=== PATIENT | female | born 1970 | race Caucasian/White ===

== ENCOUNTER 2024-02-20 19:48 | Emergency (ER) | payer BC, SELFPAY ==
[2024-02-20 19:50] VITALS: BP 167/113; BMI 36.4
--- NOTE | 2024-02-20 22:55 | ED.MUSCINJ ---
HPI-Injury
<HANNAH Montana - Last Filed: 02/20/24 23:27>
General
Chief Complaint: Musculo-Skeletal Complaint
Source: patient
Exam Limitations: none
Time Seen by Provider: 02/20/24 22:42
Travel History
Have you had any contact with someone who has COVID-19?: No
Do you have any symptoms of coronavirus? Fever > 100 degrees, chills, cough, shortness of breath, sore throat, loss of taste or smell, muscle aches, or headache?: No
History of Present Illness-Injury
Initial Injury comments:
This is a 53 yo F presenting for R thumb injury. She states she jammed her thumb on a basketball at 6pm today and felt her proximal thumb dislocate before immediately 'popping back in place.' Since then her thumb has been increasingly swollen. She
states minor limitation of thumb flexion and attributes this to the swelling.
She denies significant pain, denies loss of sensation.
Review of Systems
<HANNAH Montana - Last Filed: 02/20/24 23:27>
Review of Systems
Allergies reviewed?: Yes
Constitutional: Reports no symptoms
Musculoskeletal: Reports joint pain and joint swelling
Musculoskeletal Injury Exam
<HANNAH Montana - Last Filed: 02/20/24 23:27>
Musculoskeletal Injury Exam
Right Proximal Thumb:
Pain with Movement?: Mild
Tender to palpation?: Mild
Soft tissue swelling?: Moderate
External deformity and angulation?: None
Joint effusion?: None
Contusion?: None
Hematoma-local bleeding into tissue?: None
Strain- Sprain- Tear (Connective tissue injury)?: Moderate
Crepitus with movement?: No
Joint instability?: No
Malalignment/deformity?: No
Range of motion: Limited (limited thumb flexion)
Distal skin color and temperature: normal-warm & good color
Capillary Refill: normal
Normal distal neurovascular exam?: Yes
Phy Exam
<HANNAH Montana - Last Filed: 02/20/24 23:27>
General Physical Exam
General Presentation: well appearing and no apparent distress
General age: appears stated age
Injury Course
<HANNAH Montana - Last Filed: 02/20/24 23:27>
Orders/Labs/Results
Orders:
Orders
02/20/24 19:55
Thumb/Finger 2 View Rt [CR Finger(s)/thumb Min 2 Vw Rt] Urgent
Comment:
Reason For Exam: injury
Indicate Which Finger:: Thumb
02/20/24 23:06
Aluminium Finger Splint Right ONCE
<Carl Rivera DO - Last Filed: 02/20/24 23:19>
Orders/Labs/Results
Orders:
Orders
02/20/24 19:55
Thumb/Finger 2 View Rt [CR Finger(s)/thumb Min 2 Vw Rt] Urgent
Comment:
Reason For Exam: injury
Indicate Which Finger:: Thumb
02/20/24 23:06
Aluminium Finger Splint Right ONCE
<HANNAH Montana - Last Filed: 02/20/24 23:27>
MDM/Problems Addressed
Differential Diagnosis Includes:
Thumb Strain
MDM/Problems Addressed:
Finger XRAY negative for fracture and dislocation, demonstrates soft tissue swelling.
Thumb splint applied.
Patient instructed to rest and ice her thumb, and use NSAIDS as needed.
Patient was advised to get evaluated again if pain at the base of the thumb continues to worsen.
<HANNAH Montana - Last Filed: 02/20/24 23:27>
*Radiology
Radiology exam reviewed: radiology read reviewed and all reviewed NAD by ED Provider
*Critical Care Note
Total Time (30-74mins, 75-104mins- exclusive of procedures): Not Applicable
ED Attending Note
<HANNAH Montana - Last Filed: 02/20/24 23:27>
-
Portions of this chart may have been created with voice recognition software.� Occasional wrong word or��sound alike� substitutions may have occurred due to the inherent limitations of voice recognition software.
<Carl Rivera DO - Last Filed: 02/20/24 23:19>
ED Attending Note
Patient seen and examined by attending physician: Yes
I performed the substantive portion of visit, reviewed & personally made and approve the management plan that is documented in note by myself or PAIGE.: Yes
ED Attending Note:
Pleasant 53-year-old female presents with right thumb pain while playing basketball. She states that she jammed it while getting a pass. She felt that it was temporarily dislocated but now feels that it is back in place. Denies any other injury.
Patient was seen in conjunction with the PA student. I have reviewed and agree with the history and treatment plan presented. On my independent physical exam, patient is awake, alert, and oriented x3. No acute distress. She does have painful
movement of the right thumb. Capillary refill. Good coloration. No obvious deformity. No scaphoid tenderness.
X-ray was reviewed by myself and deemed negative. Radiology report reviewed.
Plan is discharge. Follow-up with Ortho for continued pain.
Discharge Plan
Departure
Patient Disposition: Home (Routine Discharge)
Patient with high blood pressure during this ER visit?: Yes
Discharge Problem:
Strain of right thumb
Instructions: Using Cold for Pain, Splint Care, BLOOD PRESSURE
Referrals:
Kofi Dixon MD [Family Provider] -
Alberto Aguirre MD [Active] - As needed
Activity Restrictions/Additional Instructions:
As discussed, if you have continued pain at the base of the thumb it is very important that you follow-up with orthopedics and/or get a repeat x-ray.
It was a pleasure meeting you and taking part in your care. We hope for your continued healing and wellness.
Please read discharge instructions in their entirety. However, they are for general education and may not describe your exact diagnosis at discharge. Information on your ER visit and medical conditions were discussed with you along with appropriate
follow up information...
If indicated, please take your medications as instructed and indicated on discharge paperwork.
Please schedule a follow up appointment as directed. Call to schedule an appointment
Please return to the emergency department with ANY change in, persisting, or worsening of symptoms. If any of your symptoms do not improve, or persist, or become more severe within 6-12 hours, please return to the emergency department for further
care.
Please return to the emergency department if you develop a headache, neck pain/stiffness, fever greater than 100.4F, chest pain, shortness of breath, persistent nausea, vomiting, slurred speech, difficulty walking, numbness/tingling, weakness, signs
of infection or any other symptoms that are worrisome to you.
If you have any questions or concerns please do not hesitate to call the Hospital at or E-mail me directly at [email or web address]
Interventions
Interventions:
*Risk Screen - Suicide Last Done: 02/20/24 19:50
*General Assessment Last Done: 02/20/24 19:50
*Neglect/Abuse Screening Last Done: 02/20/24 19:50
*ED COVID-19 Vaccine History Last Done: 02/20/24 19:50
ED-Musculoskeletal Assessment Last Done: 02/20/24 23:14
Discharge Date and Time
Print Language: UKRAINIAN
== END 2024-02-21 00:02 | disposition home or self-care (01) ==
LOC: EMR 19:48
PROVIDERS: EMERGENCY PHYSICIAN Student in an Organized Health Care Education/Training Program; FAMILY PHYSICIAN Family Medicine
DX: S69.91XA Unspecified injury of right wrist, hand and finger(s), initial encounter (principal); X58.XXXA Exposure to other specified factors, initial encounter
CPT/HCPCS: 99283; 29130; 73140

== ENCOUNTER → 2024-08-12 08:48 | Outpatient (REF) | payer BC, SELFPAY | LOC: WDC 08:48 | PROVIDERS: ATTENDING PHYSICIAN Nurse Practitioner Family | DX: Z12.39 Encounter for other screening for malignant neoplasm of breast (principal); Z12.31 Encounter for screening mammogram for malignant neoplasm of breast | CPT/HCPCS: 77063; 77067 ==

== ENCOUNTER → 2024-08-24 13:26 | Outpatient (REF) | payer BC, SELFPAY | LOC: RCS 13:26 | PROVIDERS: ATTENDING PHYSICIAN Nurse Practitioner Family | DX: Z00.01 Encounter for general adult medical examination with abnormal findings (principal) | CPT/HCPCS: 93017; 93005 ==

== ENCOUNTER → 2025-08-18 09:18 | Outpatient (REF) | payer BC, SELFPAY | LOC: WDC 09:18 | PROVIDERS: ATTENDING PHYSICIAN Nurse Practitioner Adult Health; FAMILY PHYSICIAN Family Medicine | DX: Z12.31 Encounter for screening mammogram for malignant neoplasm of breast (principal) | CPT/HCPCS: 77063; 77067 ==